=== PATIENT | male | born 1970 | race Caucasian/White ===

== ENCOUNTER 2016-11-18 06:53 | Emergency (ER) | payer OTHER ==
[~2016-11-18] VITALS: Ht 188 cm; Wt 106.8 kg
[2016-11-18 06:58] VITALS: BP 126/79; PULSE 65; RESP 16; O2SAT 97
--- NOTE | 2016-11-18 07:54 | ED.REPORT ---
HPI-Extremity Problem Lower Date of Service Nov 18, 2016 ED Provider: Shakira Varner MD 46-year-old active male presents the emergency department with foot pain that began this morning. Patient states the pain is sharp 8/10 and does not radiate. Patient states his stepping out of bed this morning caused increased pain in the right foot and he was unable to bear weight. He states that without weightbearing pain is 0/10. Exacerbated by ambulation, relieved by nothing. Patient has not taken anything for pain. This is never happened before. He denies fever chills, nausea, vomiting, chest pain, shortness of breath. Nursing Notes Stated Complaint: LEFT FOOT PAIN Chief Complaint: Extremity Trauma Nursing Notes Reviewed: Yes Allergies: Coded Allergies: No Known Allergies (Unverified , 12/16/15) No Active Prescriptions or Reported Meds General Time Seen by MD: 07:40 Chief Complaint Foot injury right Hx Obtained From: Patient, Spouse Arrived By: Walk-in Onset Occurred: Just prior to arrival Severity: Current: No pain currently Severity: Maximum: Pain level 8 out of 10 Recent Healthcare: No recent doctor visit Risk-Extremity Prob Lower Well's Criteria for DVT Well's DVT Score: 0 pts (low risk 5%) Past Medical History Past Medical History Healthy Past Surgical History Denies Smoking History Never Smoker Social History Chewing tobacco Alcohol Use: "Social" Drug Use: Denies drug use Other Social History: Good social support Ambulatory Status Independent Review of Systems Basic Review of Systems Eyes: Vision NL ENT: Hearing NL Respiratory: No shortness of breath Cardiovascular: No chest pain Constitutional: Denies: Chills, Fever Musculoskeletal: Reports: Extremity pain, Denies: Joint pain, Joint swelling Skin: Denies Diaphoresis Complete sys rev & neg: except as marked. Physical Exam Physical Exam Notes: Tenderness to palpation of the anterior ventral portion of the right calcaneus Tenderness to palpation of the dorsal surface of the right foot Initial Vital Signs Vital Signs (First) Date Time Temp Pulse Resp B/P Pulse Ox O2 Delivery O2 Flow Rate FiO2 11/18/16 06:58 36.6 65 16 126/79 97 Room Air Initial VS: Reviewed, Vital signs normal General/Constitutional: Well-developed, Well-nourished Head / Eyes: Atraumatic, Normocephalic, PERRL ENT: Mucous membranes moist, Conjunctiva normal, No scleral icterus Respiratory: Breath sounds normal, Clear to auscultation, No respiratory distress Cardiovascular: Regular rate & rhythm, Heart sounds normal, Intact distal pulses Upper Extremities: Vascular intact, Neuro intact, No swelling Right Ankle: Negative: Swelling present... Right Foot: Positive: Tender calcaneous, Tender plantar fascia, Tenderness present... (Moderate), Negative: Deformity present, Ecchymosis present, Erythema present, Neuro deficit present, Open fracture present, Pulse dors ped decreased, Pulse dorsalis ped absent, ROM reduced, Swelling present..., Tendon injury extensor, Tendon injury flexor, Warmth present Right Great Toe: Negative: Swelling present..., Tenderness present... Interpretation & Diagnostics X-Ray Interpretation Xray Interpretation: No acute findings X-Ray Ordered: Foot left Interpretation / Wet Read by: Interpret - ED physician, Interpret - Radiologist Re-Eval/Medical Decision Med Decision/Clinical Course There are many possible reasons for this patient's pain, however none are acute or need to be treated on an emergent basis. It is possible that the patient has developed plantar fasciitis as he is excessively tender at the anterior portion of the calcaneus, however this does not explain the tenderness to palpation of the middle dorsum of the foot. It is also possible that this is related to an arthritic process, although this is unlikely given the acute onset of the patient's pain. Another possibility is that this is related to a gouty inflammatory process, the patient states that he drinks socially but does not have any history of gout , and it is unlikely for a gouty attack to present in the middle dorsum of the foot. The patient was informed appropriately regarding the various possibilities which may reproduce his pain this morning, and is asked to follow-up with a primary care provider in the instance that his pain is ongoing or is not able to be controlled with [id number] medications. Counseled Regarding: Diagnosis, Lab results, Need for follow-up, When/why to return to ED Discharge & Departure Impression: Primary Impression: Foot pain, right Disposition: Home Discharge Condition All VS Reviewed: Yes Condition: Stable Patient Instructions: Plantar Fasciitis (ED) Additional Instructions: You came to the emergency department today with concern for pain in her right foot. With the imaging and physical exam that we are able to perform today, we are unable to find a specific reason for your pain. Suggest that you take ibuprofen at home as needed for pain up to 800 mg 3 times a day. Use heat and cold as needed, whichever you feel alleviates the pain in this area most adequately. I suggest that you follow-up with her primary care provider who may suggest other modalities for testing and treatment. Please return to emergency department if his symptoms change suddenly. Referrals: NOPCP (PCP) Attending Statement Patient seen and examined Is tender from mid foot to just distal to the ankle. Distal plantar fascia. No swelling no redness no warmth. Uncertain etiology and clearly states no trauma. I doubt gout with no other joint involvement. No other arthritides or other joint involvement. Etiology for the pain developing this morning is unclear. X-rays unremarkable Ibuprofen rest ice. if worse needs to return for additional evaluation Field,Yariel Fried DO Nov 18, 2016 07:54 Shakira Varner MD Nov 18, 2016 13:25
--- NOTE | 2016-11-18 08:27 | DRSVH ---
PROCEDURE: X-RAY LEFT FOOT COMPLETE, MINIMUM THREE VIEWS ([id number]) INDICATIONS: foot pain TECHNIQUE: 3 views of the foot were acquired. COMPARISON: None. FINDINGS: Bones: No fractures or dislocations. No suspicious bony lesions. Soft tissues: No tibiotalar joint effusion. Achilles tendon appears normal. IMPRESSION: No fracture. No osseous lesion. If symptoms and/or clinical suspicion for pathology per sists, further assessment with repeat radiographs or advanced imaging (e.g. CT, MRI or bone scan) may be helpful for further assessment. Dictated by: Ariana Rasheed MD, PhD on 11/18/2016 at 8:22 Approved by: Ariana Rasheed MD, PhD on 11/18/2016 at 8:25
[2016-11-18 09:55] VITALS: BP 147/97; PULSE 65; RESP 16; O2SAT 98
== END 2016-11-18 09:56 | disposition home or self-care (01) ==
LOC: SED 06:53
DX: M79.671 Pain in right foot (principal)